=== PATIENT | female | born 1935 | race Caucasian/White ===

== ENCOUNTER → 2017-11-14 12:24 | Outpatient (CLI) | payer MEDICARE, SELFPAY ==
[2017-11-14 14:35] LABS: ALB/GLOB Ratio 0.4 RATIO (0.9-2.4); AST(SGOT) 27 U/L (15-37); Alanine Aminotransfer ALT/SGPT 24 U/L (13-56); Albumin, Serum 1.8 g/dL (3.2-5.0); Alkaline Phosphatase 99 U/L (45-117); Anion Gap 8 (5-15); BUN 12 mg/dL (7-18); BUN/Creat Ratio 12.1 RATIO (10-20); Calcium,Total 7.7 mg/dL (8.5-10.1); Chloride 106 mmol/L (98-107); Creatinine, Serum 0.99 mg/dL (0.55-1.02); EST Glomerular Filtration Rate 57 mL/min (>60); Est Glom Filt Rate - Afr Amer 69 mL/min (>60); Globulin 4.4 g/dL (2.2-4.2); Glucose 70 mg/dL (74-106); Magnesium 1.7 mg/dL (1.6-2.6); Phosphorus 3.3 mg/dL (2.5-4.9); Potassium 4.2 mmol/L (3.5-5.1); Protein, Total 6.2 g/dL (6.4-8.2); Sodium Level 140 mmol/L (136-145); T4 Free Direct 1.26 ng/dL (0.76-1.46); Thyroid Stim Hormone (TSH) 2.42 uIU/mL (0.358-3.74)
[2017-11-15 08:46] LABS: Vitamin B12 509 pg/mL (211-911)
== END ==
PROVIDERS: Family Provider Family Medicine; PCP Family Medicine; Visit Provider Nurse Practitioner Acute Care
DX: E46 Unspecified protein-calorie malnutrition (principal); Z86.73 Personal history of transient ischemic attack (TIA), and cerebral infarction without residual deficits
CPT/HCPCS: 36415; 80053; 82607; 82746; 83735; 84100; 84439; 84443; 84481

== ENCOUNTER → 2017-12-22 13:30 | Outpatient (CLI) | payer MEDICARE, SELFPAY ==
--- NOTE | 2017-12-22 13:30 | SP.MBSS_ITS ---
PRIMARY / SECONDARY DIAGNOSIS: dysphagia (R13.12) REFERRING PHYSICIAN: Dr. Dirk Pompa MD CURRENT DIET: mechanical soft textures, nectar thickened liquids DENTITION: upper / lower dentures MENTAL STATUS: cognitively impaired RESPIRATORY STATUS: O2 via room air PREVIOUS MODIFIED BARIUM SWALLOW STUDY: yes 05/2017 MBS at [facility] revealed severe oropharyngeal dysphagia with SILENT aspiration, recommend alternative means of nutrition 05/29/2017 MBS revealed moderate to severe oropharyngeal dysphagia (R13.12) with SILENT aspiration of thin and nectar thickened liquids 06/21/2017 MBS revealed moderate oropharyngeal dysphagia (R13.12) with SILENT and overt aspiration of thin liquids REASON FOR REFERRAL: Patient is an 82 year old female residing at [facility] referred for a modified barium swallow (MBS) study to objectively assess the Patients oropharyngeal swallow function under fluoroscopy secondary to a prior acute right hemispheric infarction with CTA revealing right carotid artery occlusion resulting in moderate oropharyngeal dysphagia with SILENT aspiration identified during multiple vdeofluoroscopic studies. Patient recently receiving treatment for pneumonia with possible aspiration component. Patient well known to this clinician from previous [facility] Acute Care, Acute Inpatient Rehabilitation, and Transitional Care Unit admissions. 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 STUDY FINDINGS: Patient participated in a Modified Barium Swallow (MBS) study on 12/22/2017. Dr. Tarango was the radiologist present for this evaluation. This study was recorded in the lateral view and images were sent to PACs for storage. The following consistencies were presented to this patient for analysis of oropharyngeal swallow function: thin liquids, nectar thickened liquids, honey thickened liquids, pudding, and a regular textured, Nohelia Doone cookie. Results of the MBS are as follows: PENETRATION / ASPIRATION SCALE (MEREDITH): 1 = does not enter airway 2 = enters airway/above vocal folds/ejected 3 = enters airway/above vocal folds/not ejected 4 = enters airway/contacts vocal folds/ejected 5 = enters airway/contacts vocal folds/not ejected 6 = enters airway/below vocal folds/ejected 7 = enters airway/below vocal folds/not ejected despite effort 8 = enters airway/below vocal folds/no effort VIDEOFLOROSCOPIC SCALE SCORE (MEREDITH): Grade I = aspiration of material that has penetrated into the laryngeal vestibule, intact cough reflex Grade II = aspiration < 10 % of the bolus, intact cough reflex Grade III = aspiration of < 10 % of the bolus, reduced cough reflex or aspiration of > 10 % of the bolus, intact cough reflex Grade IV = aspiration of > 10 % of the bolus, reduced cough reflex PENETRATION / ASPIRATION SCALE (SCORE) WITH VIDEOFLOROSCOPIC SCALE SCORE: Thin liquids via cup (single sip): 8 - Grade III Thin liquids via cup (single sip): 8 - Grade IV Twilight thickened liquids via cup (single sip): 3 Twilight thickened liquids via cup (single sip): 3 Twilight thickened liquids via cup (single sip): 3, 8* - Grade III Twilight thickened liquids via cup (single sip): 1, 8* - Grade III Twilight thickened liquids via cup (single sip): 8* - Grade IV Honey thickened liquids via cup (single sip): 1 Honey thickened liquids via cup (single sip): 1 Honey thickened liquids via cup (single sip): 1 Pudding via spoon: 1 Regular textured cookie: 1 Honey thickened liquids via cup (single sip): 1 * denotes aspiration of previously penetrated materials IMPRESSION: DIAGNOSIS: severe oropharyngeal dysphagia (R13.12) ORAL PHASE CHARACTERIZED BY: LABIAL SEAL: no labial escape TONGUE CONTROL DURING BOLUS MANIPULATION: intermittent posterior escape of less than half of bolus; escape to lateral buccal cavity/floor of mouth with solid textures BOLUS PREPARATION / MASTICATION: slow prolonged chewing/mashing with complete recollection BOLUS TRANSPORT / LINGUAL MOTION: repetitive/disorganized tongue motion ORAL RESIDUE: trace residue lining oral structures PHARYNGEAL PHASE CHARACTERIZED BY: INITIATION OF PHARYNGEAL SWALLOW: bolus head in pyriforms at first hyoid excursion SOFT PALATE ELEVATION: no bolus between soft palate and pharyngeal wall LARYNGEAL ELEVATION: partial superior movement of thyroid cartilage/partial approximation of arytenoids cartilage to epiglottic petiole ANTERIOR HYOID EXCURSION: partial anterior movement EPIGLOTTIC MOVEMENT: partial epiglottic inversion LARYNGEAL VESTIBULE CLOSURE AT HEIGHT OF SWALLOW: incomplete laryngeal vestibule closure with narrow column of air/contrast in laryngeal vestibule PHARYNGEAL STRIPPING WAVE: pharyngeal stripping wave present / complete PHARYNGOESOPHAGEAL SEGMENT OPENING: complete distension and complete duration with no obstruction of flow TONGUE BASE RETRACTION: trace column of contrast between tongue base and posterior pharyngeal wall PHARYNGEAL RESIDUE: trace residue within or on pharyngeal structures ESOPHAGEAL PHASE CHARACTERIZED BY: ESOPHAGEAL BOLUS CLEARANCE IN THE UPRIGHT POSITION: could not view EFFECTS OF TREATMENT STRATEGIES ATTEMPTED: Chin tuck posture = ineffective Anterior lean = ineffective 3 second prep = ineffective Cough and reswallow = ineffective Effort swallow = ineffective Reduced bolus size = moderately effective DIET TEXTURE RECOMMENDATIONS: Will recommend a pureed textured, honey thickened liquid diet. COMPENSATORY STRATEGIES RECOMMENDED: Supervision, reduced bolus volume, seated upright at 90 degrees during PO intake, remain upright for 30-60 minutes post meal (GERD precaution), medication one at a time whole in applesauce. INTERPRETATION OF RESULTS: Patient presents with severe oropharyngeal dysphagia (R13.12) secondary to an acute right hemispheric infarction. Little to no change in presentation noted aside from silent aspiration of more viscous / dense textures, with possible deconditioning further complicating swallow function. Oral phase marked by suboptimal lingual control resulting in delayed initiation of tongue motion with intermittent repetitive / disorganized lingual motions and continued posterior escape of less than half of bolus with additional mild buccal pocketing during solid textures. Pharyngeal phase marked by continued moderate impairment in pharyngeal swallow onset (2-6 second delay) leading to suboptimal bolus location upon deglutition; and continued reduced closure of the airway during deglutition attributed to reduced hyolaryngeal excursion resulting in insufficient epiglottic inversion and poor laryngeal vestibule closure / pressure and insufficient laryngeal vestibule pressure generated to expel penetrated material leading to post prandial silent aspiration of prior thin and nectar thickened liquids penetrated into the laryngeal vestibule; with all deficits contributing to prandial penetration and subsequent silent aspiration of thin and nectar thickened liquids. Patient has demonstrated little to no improvements in regards to oropharyngeal functioning throughout intervention cycles despite effort. Insufficient effects noted from a variety of compensatory strategies implemented across studies, with anticipated difficulty in ability to sufficiently recall multiple compensatory strategies during intake to facilitate sufficient execution. Although the Patient did not demonstrate aspiration / penetration with honey thickened liquids, it is not outside the realm of possibilities that the Patient would have presented with aspiration and a diminished sensory response to tracheobronchial aspiration throughout a prolonged period of intake. The Patient further required re- positioning due to an apparent inability to sufficiently lower the right shoulder, reports recent limited mobility; questionable structural changes ( strictures?) concerning for limited mobility, with the Patient reporting little to no ambulatory performance prior to bout of pneumonia, further raising concern for tolerance of any tracheobronchial aspiration and potential for aspiration related pneumonitis. Would consider this Patient to be at high risk for malnutrition and dehydration due to the recommended diet texture restrictions, with reduced pleasure expressed by the Patient leading to smaller PO intake quantities, in addition to likely increase in satiety with recommended thicker viscosities. Patient at high risk of pulmonary complications associated with aspiration (due to the limitations in mobility, presence and extent of SILENT aspiration, and potential for tracheobronchial aspiration of more dense viscosities). RECOMMENDATIONS: Would strongly discourage advancement past honey thickened liquids without completion of a repeat modified barium swallow study due to the extent of aspirate identified that was SILENT in nature. Recommend a repeat modified barium swallow study within 4-8 weeks (if clinically appropriate) to further assess the presence and extent of silent and overt aspiration prior to advancement to thin liquids if aggressive intervention is pursued. Would consider advancement in solids to mechanical soft textures via assessment at bedside to be a more realistic therapeutic target in comparison to advancement in liquid viscosity unless a marked improvement in overall functioning ( deglutition, ambulation, mobility, etc.) is appreciated. Cannot assume that the Patient will be able to tolerate aspiration of smaller volumes of thicker viscosities vs. larger volumes of thinner viscosities. Recommend implementation of the Song Free Water Protocol (FFWP) if not already established, as continued manipulation of thin liquids with above recommended aspiration precautions may promote improved / maintained hydration if strict and aggressive oral care is provided and annual dental care is provided by a licensed dental hygienist and assessment completed via licensed dentist. Patient requires intensive skilled speech-language intervention targeting continued diet texture management; training and implementation of recommended compensatory strategies; training, implementation, and Patient education regarding implementation of the FFWP; and would consider training and implementation of oropharyngeal strengthening exercises to facilitate improved oropharyngeal strength and coordination, though significant improvement is not likely due to the post-acute nature of the Patients etiology that precipitated a change in functioning, and limited improvement noted across treatment cycles, with intervention likely to target maintenance of functioning unless significant improvement is gleaned from the current intervention cycle. Patient requires AGGRESSIVE and continual physical therapeutic intervention to achieve the highest level of safe ambulatory abilities to promote improved overall physical functioning with possible concomitant positive effect on deglutition in addition to highest level of tolerance to tracheobronchial aspiration and aeration of the lungs, with strong consideration for some form of ambulatory nursing program outside of physical therapy if medically appropriate. Would pursue return to alternative means of nutrition ONLY to combat concerns with malnutrition and dehydration, with no significant research evidence to suggest a reduction in aspiration risk with return to alternative means of nutrition. Would consider quality of life if the Patient and Patients family request advancement to less restrictive diet ONLY if all parties comprehend the severity of the Patients swallow deficits and concomitant medical complications associated with silent aspiration. ADDITIONAL COMMENTS/RECOMMENDATIONS: Results and recommendations were discussed with the Patient immediately following MBS completion, with the Patient verbalizing understanding and agreement with all recommendations and education provided. IMAGE COUNT: [id number] G-CODES: SWALLOWING [id number] Current Status: CL SWALLOWING G8997 Goal Status: SWALLOWING G8998 Discharge Status: CL
--- NOTE | 2017-12-22 13:35 | RAD_ITS ---
STUDY: SWALLOWING STUDY REASON FOR EXAM: Female, 82 years old. Oral pharyngeal dysphagia. TECHNIQUE: The examination was performed with Speech Pathology in attendance. Under fluoroscopic observation, the patient ingested thin barium, thick barium, barium pudding, and barium coated cracker. FLUOROSCOPY TIME: 3:24 minutes/seconds. 2669 spot images were obtained. RADIOLOGIST INVOLVEMENT: Radiologist was present and providing direct supervision. COMPARISON: None. FINDINGS: The following was observed during swallowing of the various mixtures of barium: Thin Barium: Silent aspiration with ingestion of thin liquids. Thick Barium: Silent aspiration with ingestion of nectar thickened liquids. Honey thickened liquids were unremarkable. Barium Pudding: There was no evidence of aspiration or laryngeal penetration. Barium Coated Cracker: There was no evidence of aspiration or laryngeal penetration. RAD/Swallowing Function w/Video IMPRESSION: Silent aspiration with ingestion of the thin liquids and nectar thickened liquids. The swallow study findings were discussed with the patient by the speech pathologist at the conclusion of the examination. Please see speech pathology report for more information and recommendations. Electronically Signed: Moise Tarango MD at 14:19 EDT Tel [phone], Service support ,
== END ==
PROVIDERS: Family Provider Family Medicine; PCP Family Medicine; Visit Provider Family Medicine
DX: R13.12 Dysphagia, oropharyngeal phase (principal)
CPT/HCPCS: 74230; 92611

== ENCOUNTER → 2018-05-25 13:09 | Outpatient (CLI) | payer MEDICARE, SELFPAY ==
--- NOTE | 2018-05-25 13:30 | SP.MBSS_ITS ---
PRIMARY / SECONDARY DIAGNOSIS: dysphagia (R13.12) REFERRING PHYSICIAN: MOHINI RichardC CURRENT DIET: mechanical soft textures, honey thickened liquids DENTITION: upper / lower dentures MENTAL STATUS: cognitively impaired RESPIRATORY STATUS: O2 via room air PREVIOUS MODIFIED BARIUM SWALLOW STUDY: 05/2017 MBS at [facility] revealed severe oropharyngeal dysphagia with SILENT aspiration, recommend alternative means of nutrition 05/29/2017 MBS revealed moderate to severe oropharyngeal dysphagia (R13.12) with SILENT aspiration of thin and nectar thickened liquids 06/21/2017 MBS revealed moderate oropharyngeal dysphagia (R13.12) with SILENT and overt aspiration of thin liquids 12/22/2017 MBS revealed severe oropharyngeal dysphagia (R13.12) with SILENT aspiration of thin and nectar thickened liquids REASON FOR REFERRAL: Patient is an 82 year old female residing at [facility] referred for a modified barium swallow (MBS) study to objectively assess the Patients oropharyngeal swallow function under fluoroscopy secondary to a prior acute right hemispheric infarction with CTA revealing right carotid artery occlusion resulting in moderate oropharyngeal dysphagia with SILENT aspiration identified during multiple vdeofluoroscopic studies. Patient accompanied by her niece, both well known to this clinician from previous [facility] Acute Care, Acute Inpatient Rehabilitation, and Transitional Care Unit admissions; both detail recent increase in PO diet texture intolerance, with reported recent events described to be similar in nature to brief asphyxiation occurring during intake, in addition to persistent coughing both during PO intake and following meals. Both additionally detail a recent decline in weight (< 10lbs) with recent re-initiation of alternative means of nutrition via percutaneous endoscopic gastrostomy (PEG) tube to assist with maintaining caloric intake quantities. Patient reports advancement to nectar thickened liquids, though uncertain at time of assessment, with recommendations to undergo vdeofluoroscopic re-examination prior to any advancement due to silent nature of aspiration identified under fluoroscopy. Both report re-initiation of skilled speech-language intervention, with recommendations for use of the chin tuck posture (found to be ineffective under fluoroscopy on multiple occasions). No changes in ambulatory abilities, with the Patient requiring max assistance to facilitate transfers, currently non-ambulatory. 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 STUDY FINDINGS: Patient participated in a Modified Barium Swallow (MBS) study on 05/25/2018. Dr. Tarango was the radiologist present for this evaluation. This study was recorded in the lateral view and images were sent to PACs for storage. The following consistencies were presented to this patient for analysis of oropharyngeal swallow function: thin liquids, nectar thickened liquids, honey thickened liquids, pudding, and a regular textured, Nohelia Doone cookie. Results of the MBS are as follows: PENETRATION / ASPIRATION SCALE (MEREDITH): 1 = does not enter airway 2 = enters airway/above vocal folds/ejected 3 = enters airway/above vocal folds/not ejected 4 = enters airway/contacts vocal folds/ejected 5 = enters airway/contacts vocal folds/not ejected 6 = enters airway/below vocal folds/ejected 7 = enters airway/below vocal folds/not ejected despite effort 8 = enters airway/below vocal folds/no effort VIDEOFLOROSCOPIC SCALE SCORE (MEREDITH): Grade I = aspiration of material that has penetrated into the laryngeal vestibule, intact cough reflex Grade II = aspiration < 10 % of the bolus, intact cough reflex Grade III = aspiration of < 10 % of the bolus, reduced cough reflex or aspiration of > 10 % of the bolus, intact cough reflex Grade IV = aspiration of > 10 % of the bolus, reduced cough reflex PENETRATION / ASPIRATION SCALE (SCORE) WITH VIDEOFLOROSCOPIC SCALE SCORE: Thin liquids via cup (chin tuck): 8 - Grade III Thin liquids via cup (chin tuck): 7 - Grade III Chalco thickened liquids via cup (chin tuck): 8 - Grade III [place] thickened liquids via cup (single sip): 7 - Grade II Honey thickened liquids via cup (single sip): 2 Honey thickened liquids via cup (chin tuck): 5 Honey thickened liquids via cup (single sip): 7 - Grade II Honey thickened liquids via cup (single sip): 2 Honey thickened liquids via cup (single sip): 2* Pudding via spoon: 1 Pudding via spoon: 1 Regular textured cookie (10/12): 1 * denotes post prandial coughing likely associated to either baseline moist coughing or delayed coughing associated with previous silent and overt aspiration events. multiple views complicated by significant kyphosis and difficulties maintaining upright seated posture, tendency to lean to right side during study. IMPRESSION: DIAGNOSIS: severe oropharyngeal dysphagia (R13.12) ORAL PHASE CHARACTERIZED BY: LABIAL SEAL: interlabial escape, no progression to anterior lip TONGUE CONTROL DURING BOLUS MANIPULATION: intermittent posterior escape of less than half of bolus BOLUS PREPARATION / MASTICATION: slow prolonged chewing/mashing with complete recollection BOLUS TRANSPORT / LINGUAL MOTION: mild repetitive/disorganized tongue motion ( undulations) somewhat exacerbated during pureed and regular textured trials; consistent 3-4 second delay in swallow onset. ORAL RESIDUE: trace residue lining oral structures PHARYNGEAL PHASE CHARACTERIZED BY: INITIATION OF PHARYNGEAL SWALLOW: bolus head at posterior laryngeal surface of epiglottis at first hyoid excursion SOFT PALATE ELEVATION: no bolus between soft palate and pharyngeal wall LARYNGEAL ELEVATION: partial superior movement of thyroid cartilage/partial approximation of arytenoids cartilage to epiglottic petiole ANTERIOR HYOID EXCURSION: partial anterior movement EPIGLOTTIC MOVEMENT: partial epiglottic inversion LARYNGEAL VESTIBULE CLOSURE AT HEIGHT OF SWALLOW: incomplete laryngeal vestibule closure with narrow column of air/contrast in laryngeal vestibule PHARYNGEAL STRIPPING WAVE: pharyngeal stripping wave present / complete PHARYNGOESOPHAGEAL SEGMENT OPENING: complete distension and complete duration with no obstruction of flow TONGUE BASE RETRACTION: trace column of contrast between tongue base and posterior pharyngeal wall PHARYNGEAL RESIDUE: trace residue within or on pharyngeal structures ESOPHAGEAL PHASE CHARACTERIZED BY: ESOPHAGEAL BOLUS CLEARANCE IN THE UPRIGHT POSITION: could not view EFFECTS OF TREATMENT STRATEGIES ATTEMPTED: Chin tuck posture = ineffective 3 second prep = ineffective Cough and reswallow = ineffective Reduced bolus size = ineffective DIET TEXTURE RECOMMENDATIONS: Will recommend a pureed textured, pudding thickened liquid diet with considerations for continued alternative means of nutrition. COMPENSATORY STRATEGIES RECOMMENDED: Supervision, reduced bolus volume, seated upright at 90 degrees during PO intake, remain upright for 30-60 minutes post meal (GERD precaution), medication one at a time whole in applesauce. INTERPRETATION OF RESULTS: Patient presents with continued severe oropharyngeal dysphagia (R13.12) secondary to a prior right hemispheric infarction. Again, little to no change in presentation noted aside from silent aspiration of more viscous / dense textures. Oral phase marked by suboptimal lingual control resulting in delayed initiation of tongue motion with intermittent repetitive / disorganized lingual motions (undulations) and continued posterior escape of less than half of bolus. Pharyngeal phase marked by continued moderate impairment in pharyngeal swallow onset (3-4second delay) leading to suboptimal bolus location upon deglutition; and continued reduced closure of the airway during deglutition attributed to reduced hyolaryngeal excursion resulting in insufficient epiglottic inversion and poor laryngeal vestibule closure / pressure and insufficient laryngeal vestibule pressure generated to consistently expel penetrated material; all deficits contributing to prandial penetration and subsequent overt and silent aspiration of thin liquids, nectar thickened liquids , and overt aspiration of honey thickened liquids. Continued weak volitional and reflexive cough noted indicative of dystussia. Again, Patient has demonstrated little to no improvements in regards to oropharyngeal functioning throughout intervention cycles despite effort. Absolutely no improvements in PO diet texture tolerance noted with execution of postural adjustments aside from adjustments to achieve upright positioning, with a clear deleterious effect on swallow performance when the Patient independently executed the chin tuck position. 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 The Patient again required re-positioning due to an apparent inability to sufficiently lower the left shoulder and maintain seated upright position, positioning additionally complicated by noted kyphosis ; would be somewhat concerning for possible esophageal dysmotility (though not noted). Would consider this Patient to be at high risk for malnutrition and dehydration due to the recommended diet texture restrictions without continued supplementation via PEG, with reduced pleasure previously expressed by the Patient leading to smaller PO intake quantities, in addition to likely increase in satiety with recommended thicker viscosities. Persistent dependence in regards to ambulation continues to raise concern for tolerance of any tracheobronchial aspiration and potential for aspiration related pulmonary complications. Patient at high risk of pulmonary complications associated with aspiration (due to the limitations in mobility, presence of dystussia, inability to maintain upright seated positioning, presence and extent of SILENT aspiration, and potential for tracheobronchial aspiration of more dense viscosities). RECOMMENDATIONS: Engaged both the Patient and Patients niece in a very direct conversation regarding the prognosis for any functional return in regards to swallow function , which is unlikely, as the Patient has demonstrated a steady decline across 5 separate fluoroscopic assessments within the last year, with all assessments plagued by silent aspiration. Discussed the likelihood for aspiration related medical complications (extremely high), with this clinician not convinced that recommendations made this date will necessarily improve the Patients aspiration risk. Discussed mild improvements in regards to QUANTITY of aspiration, though this is offset by the CONSISTENT presentation of aspiration with increasing viscosity of materials aspirated. Discussed likely avenues of approach, which would include adjustments in the approach to care (i.e., quality vs. quantity of life / palliative vs. hospice approach); clearly articulated that there is more to consider to this decision than this clinician is able to offer, though it is clearly not a positive sign that no improvements across all physical domains have been appreciated, and the Patient would be equally at risk for aspiration related complications with or without PO intake at this juncture. Recommended that the Patient discuss within the family, in addition to a discussion with the Patients medical team at [place], with consultation with a palliative / hospice sales representative womens health likely to be beneficial even if the Patient decides against proceeding with said approach. Discussed clinical constraints with recommendations at this time, as it is clearly contraindicated to advance with honey thickened liquids due to the presence of overt aspiration, and that there will be no clinical indications for advancement to thin or nectar thickened liquids due to the presence of SILENT aspiration. Recommendations for pureed textures made with considerations for what sounded like a near-asphyxiation related event during intake as reported by the Patient and family; will defer advancement to a mechanical soft or soft textured diet to the Patients primarily clinician at [place]. I cannot express enough that at no time should the Patient be considered safe to advance to a nectar thickened liquid diet, and that if the Patient chooses to either advance with palliative care, hospice care, or with medical non-compliance with recommended diet textures, that the Patient would likely tolerate persistent aspiration of thin vs. nectar thickened liquids, as she would be more likely to develop aspiration related pulmonary complications with persistent aspiration of more viscous textures. Continued skilled speech-language intervention is indicated targeting continued diet texture management; training and implementation of recommended compensatory strategies; with Patient and family education and support as needed. Recommend encouraging the Patient to utilize her incentive spirometer due to the presence of dystussia. Strongly recommend frequent and aggressive oral care, particularly if reduced intake is noted / increased dependence on alternative means of nutrition is appreciated, with continued annual dental care provided by a licensed dental hygienist and assessment completed via licensed dentist. ADDITIONAL COMMENTS/RECOMMENDATIONS: Results and recommendations were discussed with the Patient and Patients niece immediately following MBS completion, with the Patient verbalizing understanding and agreement with all recommendations and education provided. IMAGE COUNT: [id number] G-CODES: SWALLOWING [id number] Current Status: CM SWALLOWING [id number] Goal Status: CL SWALLOWING [id number] Discharge Status: MARCELL Rivero M.A., CCC-YARDER OPERATOR [facility] Speech-Language Pathology Department [email or web address]
== END ==
PROVIDERS: Family Provider Family Medicine; PCP Family Medicine; Visit Provider Nurse Practitioner Acute Care
DX: R13.10 Dysphagia, unspecified (principal)
CPT/HCPCS: 74230; 92611

== ENCOUNTER → 2019-12-24 | Outpatient (CLI) | payer MEDICARE, MEDICAID, SELFPAY | END | disposition home or self-care (01) | PROVIDERS: PCP Family Medicine; Referring Provider Nurse Practitioner Adult Health; Visit Provider Nurse Practitioner Adult Health | DX: R50.9 Fever, unspecified (principal); R19.7 Diarrhea, unspecified; R05 Cough | CPT/HCPCS: 87493; 87633; 87798; 87804; 87807 ==